=== PATIENT | male | born 1955 | race Caucasian/White ===

== ENCOUNTER 2017-01-14 12:07 | Inpatient (IN) | payer BC, OTHER ==
[~2017-01-14] VITALS: Ht 190.5 cm; Wt 94.8 kg
[~2017-01-14 12:07] MED LIST: AMLO10TA2; ASPI-991 PO; METF500T4; METO50TA3; OLME1TAB2; ROSU5TAB
--- NOTE | 2017-01-14 12:09 | NUR ---
PT BIBRA FROM HOME TO ER BED 15. C/O SEVERE HEADACHE. N/V X 1. PT GOWNED AND PLACED ON MONITOR. 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 GOWNED AND PLACED ON MONITOR. AWAITING MD [place].
--- NOTE | 2017-01-14 12:29 | NUR ---
DR PATRICK AT BEDSIDE FOR EVAL.
[2017-01-14] MEDS ORDERED: KETOROLAC TROMETHAMINE INJ 30 MG/ML VIAL IV ONE (12:30)
[2017-01-14] MEDS ORDERED: IV NS 0.9% 1,000 ML BAG IV ONE ×2 (12:30→17:30)
[2017-01-14] MEDS ORDERED: METOCLOPRAMIDE HCL 10 MG/2 ML VIAL IV ONE (12:30)
[2017-01-14] MEDS ORDERED: ACETAMINOPHEN ES 500 MG TABLET PO ONE (12:30)
[2017-01-14] MEDS ORDERED: KETOROLAC TROMETHAMINE INJ 30 MG/ML VIAL ONE (12:52)
[2017-01-14] MEDS ORDERED: ACETAMINOPHEN ES 500 MG TABLET ONE (12:53)
[2017-01-14] MEDS ORDERED: METOCLOPRAMIDE HCL 10 MG/2 ML VIAL ONE (12:53)
--- NOTE | 2017-01-14 15:12 | NUR ---
PT NOW STATING, HE IS STILL DIZZY AND GOT NAUSEATED THE MONENT HE TRIED TO SIT UP. DR PERRY MADE AWARE.
[2017-01-14] MEDS ORDERED: ONDANSETRON 4 MG TAB.RAPDIS ONE (16:38)
--- NOTE | 2017-01-14 16:39 | NUR ---
ZOFRAN 4MG ODT GIVEN PER ERMD VERBAL ORDER.
[2017-01-14] MEDS ORDERED: ONDANSETRON HCL/PF 4 MG/2 ML VIAL IVP ONE (17:30)
[2017-01-14] MEDS ORDERED: MECLIZINE HCL 12.5 MG TABLET PO ONE (17:30)
[2017-01-14 17:41] LABS: BASOPHILS % (AUTO) 0.3 % (0.0-2.0); EOSINOPHILS % (AUTO) 0.4 % (0.0-6.0); HEMATOCRIT 33 % (39-51); LYMPHOCYTES # (AUTO) 0.4 /CMM (0.8-4.8); LYMPHOCYTES % (AUTO) 10.3 % (20.0-44.0); MEAN CORPUSCULAR HEMOGLOBIN 25 PG (26.0-33.0); MEAN CORPUSCULAR HGB CONC 33 g/dl (31.0-36.0); MEAN CORPUSCULAR VOLUME 76 fL (80-96); MONOCYTES # (AUTO) 0.4 /CMM (0.1-1.30); MONOCYTES % (AUTO) 8.7 % (2.0-12.0); NEUTROPHILS # (AUTO) 3.4 /CMM (1.8-8.9); NEUTROPHILS % (AUTO) 80.3 % (43.0-81.0); PLATELET COUNT (AUTO) 236 /CMM (150-450); RDW COEFFICIENT OF VARIATION 14.2 (11.5-15.0); RED BLOOD CELL COUNT(AUTO) 4.36 MIL/uL (4.5-6.0); WHITE BLOOD COUNT (AUTO) 4.2 K/uL (4.3-11.0)
[2017-01-14 17:50] LABS: CREATININE 1.1 mg/dL (0.6-1.3); POTASSIUM 3.8 mmol/L (3.5-5.1)
--- NOTE | 2017-01-14 17:50 | NUR ---
PATIENT TAKEN TO CT VIA STRETCHER.
[2017-01-14 17:54] LABS: PROTHROMBIN TIME 10.4 SECS (9.5-12.7)
[2017-01-14 17:56] LABS: ALBUMIN 3.6 g/dL (3.4-5.0); BILIRUBIN,DIRECT 0.2 mg/dL (0.0-0.2); BILIRUBIN,TOTAL 0.8 mg/dL (0.2-1.0); TOTAL PROTEIN, SERUM 6.7 g/dL (6.4-8.2)
--- NOTE | 2017-01-14 18:00 | NUR ---
PATIENT RETURNED FROM CT SCAN.
[2017-01-14] MEDS ORDERED: ONDANSETRON HCL/PF 4 MG/2 ML VIAL ONE (18:17)
[2017-01-14] MEDS ORDERED: MECLIZINE HCL 25 MG TABLET ONE (18:17)
--- NOTE | 2017-01-14 19:03 | NUR ---
EPIC PAGED, DR.SIMONA Blanton NEUROSURGERY PHYSICIAN
--- NOTE | 2017-01-14 19:15 | NUR ---
PT REPORT RECIEVED FROM RUDDY RN, PT IN BED ON MONITOR, VSS, PT STATES HE SI STILL FEELING VERY DIZZY BUT A LITTLE BETTER THAN BEFORE, PT STATES HE DOES NOT FEEL LIKE HE CAN STAND AT THIS MOMENT, PT A/OX4 BREATHING EFFORTLESSLY ON ROOM AIR, PT DENIES PAIN AT THIS TIME, MD MADE AWARE WILL CONTINUE TO MONITOR.
--- NOTE | 2017-01-14 19:20 | NUR ---
[facility] REPAGED
--- NOTE | 2017-01-14 19:21 | NUR ---
PT GOING TO TELE 320-2
--- NOTE | 2017-01-14 19:37 | NUR ---
REPORT GIVEN TO HO CONTRERAS IN ER FOR FLOR. REPORT ALSO GIVEN TO JAKE TEAGUE FOR ADMISSION. PATIENT REMAINS IN STABLE CONDITION.
[2017-01-14 20:00] VITALS: BP_SYST 106; BP_SYST 147; BP_DIAS 62; BP_DIAS 71
[2017-01-14] MEDS ORDERED: ONDANSETRON HCL/PF 4 MG/2 ML VIAL IVP PRN (20:00)
[2017-01-14] MEDS ORDERED: MECLIZINE HCL 12.5 MG TABLET PO PRN (20:00)
[2017-01-14] MEDS: IV NS 0.9% 1,000 ML IV PRN (20:24)
[2017-01-14 20:28] LABS: IRON, SERUM 21 ug/dl (50-175); TOTAL IRON BINDING CAPACITY 378 ug/dl (250-450)
--- NOTE | 2017-01-14 20:30 | NUR ---
RN NOTE; ADMITTED A 61Y/O, M. A, OX4. BREATHING EVENLY. NO SOB. NAD. SKIN WARM AND DRY. ABLE TO AMBULATE FROM GURNEY TO THE BED W/ ASSIST DUE TO UNSTABLE GAIT SECONDARY TO DIZZINESS. W/ C/O HEADACHE 07/12. VITAL SIGNS WNL. AFEBRILE. PT ABLE TO PROVIDE FULL MEDICAL HX AND INFO. NEURO ASSESSMENT DONE,. NO FACIAL DROOP, NO SWALLOWING PROBLEM, ABLE TO DRINK WATER W/O CHOKING OR COUGHING, NO FACIAL ASYMMETRY NOTED. NO WEAKNESS. PUPILS EQUAL, REACTIVE TO LIGHT BILAT. PT TEACHING REGARDING S/S OF TIA/ STROKE PROVIDED W/ UNDERSTANDING. ASSISTED PT TO BE COMFORTABLE IN BED . NEEDS ATTENDED .CALL LIGHT GIVEN TO THE PT. BED ALARM ON. SRX2. WILL CONT TO MONITOR AND WILL F/U W/ MD'S ORDERS/
[2017-01-14] MEDS: SIMVASTATIN 20 MG TABLET PO SCH (21:18)
--- NOTE | 2017-01-14 23:40 | NUR ---
rn note; PT WAS SEEN AND EXAMINED BY DR. GARBER . MD WERE REMINDED REGARDING MED RECON. ALSO ASKED MD FOR POSSIBLE ORDER FOR FSBS ACHS AND ALSO FOOT PUMP. OK W/ NEW ORDER. ALSO PER PT HE HAS AN ADVANCE DIRECTIVE STATING THAT PT IS DNR. REQUESTED A COPY . PER PT WILL PROVIDE US W/ A COPY OF ADVANCE DIRECTIVE. MD MADE AWARE. PER DR. GARBER OK TO PLACE AN ORDER FOR DNR IF PT VERBALLY STATES AND WISHES FOR DNR STATUS..
[2017-01-15] VITALS (7 sets, daily range): BP systolic 100–119; BP diastolic 56–65
[2017-01-15] MEDS ORDERED: *INSULIN REGULAR(HUMULIN R)HUM 100 UNIT/ML VIAL SQ PRN
[2017-01-15] MEDS ORDERED: INSULIN REGULAR, HUMAN 100 UNIT/ML 3 ML VIAL SQ PRN ×2
[2017-01-15] MEDS ORDERED: DEXTROSE 50%-WATER 50 ML DISP.SYRIN IV PRN ×2
[2017-01-15] MEDS: BLOOD SUGAR DIAGNOSTIC 1 EACH STRIP IN SCH ×4 (06:37→21:31)
--- NOTE | 2017-01-15 06:39 | NUR ---
rn note; PT IN BED AND ALERT. BREATHING EVENLY. NO SOB. NAD. NO ACUTE EVENT DURING THE NIGHT. NO NEURO DEFICIT NOTED. NO S/S OF TIA/ STROKE . REPORTED RELIEF OF HEADACHE. STILL W/ DIZZINESS. ASSISTED W/ ADLS. NEEDS ATTENDED. BED LOW LOCKED. CALL LIGHT WITHIN REACH. WILL CONT TO MONITOR AND WILL ENDORSE TO AM SHIFT FOR FLOR.
[2017-01-15] MEDS ORDERED: BLOOD SUGAR DIAGNOSTIC 1 EACH STRIP VI SCH (07:30)
--- NOTE | 2017-01-15 07:30 | NUR ---
TELE/ RN OPENING NOTES RECEIVED PT. IN BED A&OX4. TELE READING SINUS RHYTHM BRADYCARDIA WITH INVERTED T WAVES 57 BPM. PT. STATES HE HAS A HISTORY OF INVERTED T WAVES FOR 20 YEARS. BREATHING UNLABORED ON ROOM AIR, PT. OXYGEN SATURATION AT 96%. PT. DENIES DIZZINESS, AND PAIN. NO S/S OF ACUTE DISTRESS. IV FLUIDS RUNNING AT 75 ML/HR. BED IS IN LOWEST POSITION, 2 SIDE RAILS UP, AND INSTRUCTED PT. TO USE CALL LIGHT FOR ASSISTANCE.
[2017-01-15 07:48] LABS: BASOPHILS % (AUTO) 0.4 % (0.0-2.0); EOSINOPHILS # (AUTO) 0.1 /CMM (0.0-0.7); EOSINOPHILS % (AUTO) 1.7 % (0.0-6.0); HEMATOCRIT 30 % (39-51); LYMPHOCYTES # (AUTO) 0.4 /CMM (0.8-4.8); LYMPHOCYTES % (AUTO) 14.6 % (20.0-44.0); MEAN CORPUSCULAR HEMOGLOBIN 26 PG (26.0-33.0); MEAN CORPUSCULAR HGB CONC 34 g/dl (31.0-36.0); MEAN CORPUSCULAR VOLUME 76 fL (80-96); MONOCYTES # (AUTO) 0.6 /CMM (0.1-1.30); MONOCYTES % (AUTO) 20.1 % (2.0-12.0); NEUTROPHILS # (AUTO) 1.9 /CMM (1.8-8.9); NEUTROPHILS % (AUTO) 63.2 % (43.0-81.0); PLATELET COUNT (AUTO) 206 /CMM (150-450); RDW COEFFICIENT OF VARIATION 15.1 (11.5-15.0); RED BLOOD CELL COUNT(AUTO) 3.87 MIL/uL (4.5-6.0)
[2017-01-15 08:05] LABS: INR 0.99 (0.87-1.13); PROTHROMBIN TIME 10.6 SECS (9.5-12.7)
[2017-01-15 08:17] LABS: CHOLESTEROL 120 mg/dL (<200); HDL CHOLESTEROL 43 mg/dL (40-60); LDL 63 mg/dL (0-99); TRIGLYCERIDES 113 mg/dL (30-150)
[2017-01-15 08:19] LABS: ALANINE AMINOTRANSFERASE 22 U/L (12-78); ALBUMIN 3.3 g/dL (3.4-5.0); ALCOHOL, BLOOD < 3 mg/dL (0-0); ALKALINE PHOSPHATASE 82 U/L (46-116); ASPARTATE AMINOTRANSFERASE 16 U/L (15-37); BILIRUBIN,TOTAL 0.7 mg/dL (0.2-1.0); CALCIUM, SERUM 8.7 mg/dL (8.5-10.1); CARBON DIOXIDE 25 mmol/L (21-32); CHLORIDE 110 mmol/L (98-107); CREATININE 1.2 mg/dL (0.6-1.3); GLUCOSE 110 mg/dL (74-106); MAGNESIUM 1.8 mg/dL (1.8-2.4); PHOSPHORUS 3.1 mg/dL (2.5-4.9); POTASSIUM 4.1 mmol/L (3.5-5.1); SODIUM SERUM 144 mmol/L (136-145); TOTAL PROTEIN, SERUM 6.2 g/dL (6.4-8.2); UREA NITROGEN, BLOOD 15 mg/dL (7-18)
[2017-01-15] MEDS ORDERED: ASPIRIN EC 81 MG TABLET.DR PO SCH (09:00)
[2017-01-15] MEDS ORDERED: ASPIRIN 81 MG TAB.CHEW PO SCH (09:00)
[2017-01-15] MEDS: LOSARTAN POTASSIUM 25 MG TABLET PO SCH (09:00)
[2017-01-15] MEDS ORDERED: METOPROLOL TARTRATE 50 MG TABLET PO SCH (09:00)
[2017-01-15] MEDS: AMLODIPINE BESYLATE 10 MG TABLET PO SCH (09:00)
[2017-01-15] MEDS: PANTOPRAZOLE 40 MG TABLET.DR PO SCH (09:01)
--- NOTE | 2017-01-15 09:06 | NUR ---
PT. REFUSED TO TAKE ASPIRIN BECAUSE PER PT. MD SAID NOT TO TAKE ASPIRIN DUE TO RISK FOR BLEEDING. CHECKED PROVIDER NOTES. DID NOT ADMINISTER ASPIRIN.
[2017-01-15] MEDS: IV NS 0.9% 1,000 ML IV PRN ×2 (09:07→21:33)
--- NOTE | 2017-01-15 09:15 | NUR ---
PT.'S BLOOD SUGAR WAS 182 MG/DL. GLUCOPHAGE MEDICATION WAS GIVEN.
[2017-01-15] MEDS: METFORMIN 500 MG TABLET PO SCH ×2 (09:19→17:37)
--- NOTE | 2017-01-15 10:00 | NUR ---
TELE/RN NOTES PT. WAS SEEN AND EXAMINED BY SPEECH THERAPIST FOR SWALLOW EVALUATION.
[2017-01-15 10:36] LABS: BAND % (MANUAL) 1 % (0.0-5.0); EOSINOPHILS % (MANUAL) 3 % (0-4); LYMPHOCYTES % (MANUAL) 14 % (16-48); MONOCYTES % (MANUAL) 9 % (0-11.0); NEUTROPHILS % (MANUAL) 73 (42-76)
--- NOTE | 2017-01-15 11:07 | NUR ---
PER MD DISCONTINUE ASPIRIN DUE TO RISK FOR BLEEDING, PT. HAS HISTORY OF GI BLEED.
[2017-01-15 14:42] LABS: APPEARANCE,URINE CLEAR (CLEAR); BILIRUBIN,URINE NEGATIVE (NEGATIVE); BLOOD, URINE NEGATIVE Ery/uL (NEGATIVE); COLOR,URINE YELLOW (YELLOW); KETONES,URINE TRACE (NEGATIVE); LEUKOCYTE ESTERASE ,URINE NEGATIVE (NEGATIVE); NITRITE, URINE NEGATIVE (NEGATIVE); PH,URINE 6.5 (5.0-8.0); PROTEIN,URINE NEGATIVE (NEGATIVE); UGLUCOSE NEGATIVE (NEGATIVE); UROBILINOGEN,URINE 0.2 EU/dL (0.2)
[2017-01-15 14:49] LABS: BACTERIA,URINE None seen /HPF (None Seen); RBC,URINE 0-2 /HPF (0-2); SQUAMOUS EPITHELIAL CELL,UR Rare /HPF (None Seen); WBC,URINE 0-2 /HPF (0-3)
--- NOTE | 2017-01-15 17:00 | NUR ---
RN NOTES PT. STATES HE HAD A GI BLEED 12/17/2016 THAT HE WAS HOSPITALIZED FOR.
[2017-01-15 17:28] LABS: PROSTATE SPECIFIC ANTIGEN SCR 0.38 ng/mL (0.00-4.00); THYROID STIMULATING HORMONE 2.111 uIU/mL (0.358-3.74); URIC ACID 5.9 mg/dL (2.6-7.2)
[2017-01-15] MEDS ORDERED: NAPROXEN 500 MG TABLET PO PRN (18:30)
--- NOTE | 2017-01-15 19:42 | NUR ---
RN CLOSING NOTES PT. IN BED A&OX4.BREATHING UNLABORED ON ROOM AIR, PT. OXYGEN SATURATION AT 97%. NO S/S OF ACUTE DISTRESS. IV FLUIDS RUNNING AT 75 ML/HR. DVT PUMPS ARE WORKING ON BOTH LEGS. BED IS IN LOWEST POSITION, 2 SIDE RAILS UP, AND INSTRUCTED PT. TO USE CALL LIGHT FOR ASSISTANCE.
[2017-01-15] MEDS: ACETAMINOPHEN 325 MG TABLET PO PRN (21:24)
[2017-01-15] MEDS: SIMVASTATIN 20 MG TABLET PO SCH (21:24)
--- NOTE | 2017-01-15 21:32 | NUR ---
ms/rn notes patient medicated with tylenol tablets for headache, accucheck done- Bs- 87 mg/dl. no coverage given. will cont. to monitor.
[2017-01-15] MEDS ORDERED: SIMVASTATIN 20 MG TABLET PO SCH (22:00)
--- NOTE | 2017-01-16 05:57 | NUR ---
ms/rn notes patient on bed, no significant changes noted.Vital signs stable, afebrle. Denies pain or discomfort at present. administered all meds as ordered. Accucheck done - bs- 89 mg/dl. no insulin coverage. no acute distress noted. all needs attended. will continue to plan of care.
--- NOTE | 2017-01-16 07:29 | NUR ---
RN OPEN NOTES RECEIVED REPORT FROM INDUSTRIAL RELATIONS MANAGER NURSE. WILL CONTINUE TO MONITOR AND ASSESS PATIENT.
[2017-01-16] MEDS: BLOOD SUGAR DIAGNOSTIC 1 EACH STRIP IN SCH ×4 (07:34→21:37)
[2017-01-16 08:00] VITALS: BP 133/71
[2017-01-16 08:06] LABS: BASOPHILS % (AUTO) 0.5 % (0.0-2.0); EOSINOPHILS # (AUTO) 0.1 /CMM (0.0-0.7); EOSINOPHILS % (AUTO) 3.4 % (0.0-6.0); HEMATOCRIT 31 % (39-51); LYMPHOCYTES # (AUTO) 0.6 /CMM (0.8-4.8); LYMPHOCYTES % (AUTO) 22.1 % (20.0-44.0); MEAN CORPUSCULAR HEMOGLOBIN 25 PG (26.0-33.0); MEAN CORPUSCULAR HGB CONC 33 g/dl (31.0-36.0); MEAN CORPUSCULAR VOLUME 77 fL (80-96); MONOCYTES # (AUTO) 0.6 /CMM (0.1-1.30); MONOCYTES % (AUTO) 21.4 % (2.0-12.0); NEUTROPHILS # (AUTO) 1.4 /CMM (1.8-8.9); NEUTROPHILS % (AUTO) 52.6 % (43.0-81.0); PLATELET COUNT (AUTO) 200 /CMM (150-450); RDW COEFFICIENT OF VARIATION 15.4 (11.5-15.0); RED BLOOD CELL COUNT(AUTO) 3.95 MIL/uL (4.5-6.0); WHITE BLOOD COUNT (AUTO) 2.6 K/uL (4.3-11.0)
[2017-01-16 08:07] LABS: CALCIUM, SERUM 8.3 mg/dL (8.5-10.1); POTASSIUM 3.6 mmol/L (3.5-5.1)
[2017-01-16] MEDS: LOSARTAN POTASSIUM 25 MG TABLET PO SCH (08:16)
[2017-01-16] MEDS: AMLODIPINE BESYLATE 10 MG TABLET PO SCH (08:16)
[2017-01-16] MEDS: METFORMIN 500 MG TABLET PO SCH ×2 (08:16→15:16)
[2017-01-16] MEDS: PANTOPRAZOLE 40 MG TABLET.DR PO SCH (08:16)
[2017-01-16 09:18] LABS: EOSINOPHILS % (MANUAL) 4 % (0-4); LYMPHOCYTES % (MANUAL) 24 % (16-48); MONOCYTES % (MANUAL) 16 % (0-11.0); NEUTROPHILS % (MANUAL) 56 (42-76)
--- NOTE | 2017-01-16 09:45 | NUR ---
DR POLLOCK AT BEDSIDE.
[2017-01-16 11:16] LABS: CARCINOEMBRYONIC AG (CEA) 0.9 ng/mL (0.0-4.7)
[2017-01-16] MEDS ORDERED: MECL-102 PO (11:20)
--- NOTE | 2017-01-16 11:30 | NUR ---
PATIENT IS OFF THE FLOOR FOR MRI
[2017-01-16] MEDS ORDERED: ASPIRIN EC 325 MG TABLET.DR PO ONE (12:00)
--- NOTE | 2017-01-16 15:16 | NUR ---
METFORMIN 1700 DOSE HELD DUE TO MRI CONTRAST. HOLD METFORMIN FOR 48 HOURS. TO BE RESUMED ON 01/18 1700
[2017-01-16] MEDS ORDERED: GADOVERSETAMIDE 5 MMOL/10 ML VIAL IJ ONE (15:41)
[2017-01-16 16:00] VITALS: BP 129/69
[2017-01-16] MEDS: ACETAMINOPHEN 325 MG TABLET PO PRN (17:02)
--- NOTE | 2017-01-16 18:43 | NUR ---
RN CLOSING NOTES PATIENT IS IN BED, ALERT AND ORIENTED TO NAME, PLACE AND TIME. NO SIGNS AND SYMPTOMS OF DISTRESS OR PAIN. PATIENT IS ABLE TO VERBALIZED PAIN LEVEL AT APPROPRIATE TIME. BED IN LOW POSITION, LOCKED AND TWO SIDE RAILS ARE UP. IV SITE IS INTACT AND PATENT HL. POSSIBLE DISCHARGE IN AM IF DR POLLOCK CLEAR THE PATIENT. PATIENT IS ABLE TO AMBULATE TO BATHROOM WITH ASSISTANCE. GAIT IS A LITTLE UNSTEADY. WILL ENDORSE TO ACUTE CARE NURSE NURSE.
--- NOTE | 2017-01-16 19:20 | NUR ---
RN OPEN NOTES RECEIVED PATIENT AWAKE IN BED WITH FAMILY AT BEDSIDE. A/O X4. NO SIGNS OF DISTRESS OR DISCOMFORT. BREATHING EVEN AND UNLABORED. IV ACCESS IN L HAND PATENT AND INTACT, NO SIGNS OF REDNESS OR INFILTRATION. BED IN LOW LOCKED POSITION WITH SIDE RAILS X2. CALL LIGHT WITHIN REACH. WILL CONTINUE TO MONITOR.
[2017-01-16 20:00] VITALS: BP 137/72
[2017-01-16 20:09] VITALS: BP 137/72
[2017-01-16] MEDS: SIMVASTATIN 20 MG TABLET PO SCH (21:36)
[2017-01-17 03:05] LABS: HAPTOGLOBIN 134 mg/dL (34-200)
[2017-01-17] MEDS: PANTOPRAZOLE 40 MG TABLET.DR PO SCH (06:35)
[2017-01-17] MEDS: BLOOD SUGAR DIAGNOSTIC 1 EACH STRIP IN SCH ×2 (06:38→11:33)
--- NOTE | 2017-01-17 06:42 | NUR ---
RN CLOSING NOTES PATIENT AWAKE IN BED. A/O X4. NO SIGNS OF DISTRESS OR DISCOMFORT. BREATHING EVEN AND UNLABORED. IV ACCESS IN L HAND PATENT AND INTACT, NO SIGNS OF REDNESS OR INFILTRATION. ALL NEEDS MET. NO SIGNIFICANT CHANGES THROUGH THE NIGHT. BED IN LOW LOCKED POSITION WITH SIDE RAILS X2. CALL LIGHT WITHIN REACH. WILL ENDORSE TO AM SHIFT FOR FLOR.
[2017-01-17 07:09] LABS: *SPE A/G RATIO 1.6 (0.7-1.7); *SPE ALBUMIN 3.6 g/dL (2.9-4.4); *SPE ALPHA-1-GLOBULIN 0.2 g/dL (0.0-0.4); *SPE ALPHA-2-GLOBULIN 0.6 g/dL (0.4-1.0); *SPE BETA GLOBULIN 0.8 g/dL (0.7-1.3); *SPE GLOBULIN, TOTAL 2.3 g/dL (2.2-3.9); *SPE M-SPIKE Not Observed g/dL (Not Observed); *SPE PROTEIN TOTAL 5.9 g/dL (6.0-8.5); *SPEGAMMA GLOBULIN 0.6 g/dL (0.4-1.8)
--- NOTE | 2017-01-17 07:15 | NUR ---
RN OPEN NOTES RECEIVED REPORT FROM GENERAL PARTNER NURSE. PATIENT IS IN BED, AWAKE, ALERT AND ORIENTED TO NAME, PLACE AND TIME. NO SIGNS AND SYMPTOMS OF DISTRESS. i ASKED PATIENT TO SHOW ME IF HE CAN WALK STEADY; GAIT IS IMPROVING; PATIENT WAS ABLE TO WALK TO THE BATHROOM AND BACK, LITTLE DIZZINESS NOTED ON TURNING. WILL COMMUNICATE WITH DR POLLOCK WHEN SHE IS DOING HER ROUNDS. WILL CONTINUE TO MONITOR AND ASSESS PATIENT THROUGHOUT MY SHIFT
[2017-01-17] MEDS: METFORMIN 500 MG TABLET PO SCH (07:41)
--- NOTE | 2017-01-17 07:41 | NUR ---
METFORMIN HELD DUE TO CONTRAST ON 01/16
[2017-01-17 08:00] VITALS: BP 127/72
[2017-01-17 08:12] VITALS: BP 127/72
[2017-01-17] MEDS: LOSARTAN POTASSIUM 25 MG TABLET PO SCH (08:12)
[2017-01-17] MEDS: AMLODIPINE BESYLATE 10 MG TABLET PO SCH (08:12)
--- NOTE | 2017-01-17 08:13 | NUR ---
HELD LOSARTAN 25MG DUE TO PATIENT DOZINESS AND LOW HEART RATE. WILL CONTINUE TO MONITOR PATIENT BLOOD PRESSURE
--- NOTE | 2017-01-17 08:54 | NUR ---
PT AT BEDSIDE
--- NOTE | 2017-01-17 11:20 | NUR ---
DR CONTRERAS AT BEDSIDE
[2017-01-17] MEDS: ACETAMINOPHEN 325 MG TABLET PO PRN (12:52)
--- NOTE | 2017-01-17 13:37 | NUR ---
STATISTICIAN THEORETICAL NOTES PATIENT DISCHARGE ORDER RECEIVED AND CARRIED OUT. NO SIGNS AND SYMPTOMS OF DISTRESS OR PAIN AT TIME OF DISCHARGE. DENIED HEADACHE. PATIENT WAS AMBULATING WITHOUT DIFFICULTIES. DISCHARGE INSTRUCTIONS EXPLAINED TO PATIENT. PATIENT VERBALIZED UNDERSTANDING. NO NEW CONCERNS IDENTIFIED. ALL DISCHARGE FORMS SIGNED BY PATIENT AND PLACED IN THE CHART. PICTURES WERE TAKEN AND PLACED IN THE CHART. DISCHARGE PACKAGE WITH PATIENT AT TIME OF DISCHARGE. PATIENT ADVISED TO FOLLOW UP WITH HIS PRIMARY CARE PHYSICIAN AND HIS CERTIFIER WITHIN A WEEK POST DISCHARGE. PATIENT HAS AN APPOINTMENT WITH HIS CERTIFIER FOR NEXT WEEK. ALL PERSONAL BELONGING WITH PATIENT AT TIME OF DISCHARGE. BELONGING FORMS SIGNED BY PATIENT AND PLACED IN THE CHART. PRESCRIPTION WITH PATIENT AT TIME OF DISCHARGE. IV SITE REMOVED. ID BAND REMOVED. PATIENT WAS ESCORTED TO [facility] VIA A WHEELCHAIR AND AN RN. PATIENT'S NEIGHBOR, PADMINI WALSH, PICKED UP PATIENT FROM [facility] [place] VIA A PRIVATE CAR.
== END 2017-01-17 13:37 | disposition home or self-care (01) | DRG 103 ==
LOC: ER 12:08 → TELE 19:23 → MED 01-15 08:42
PROVIDERS: ADMIT Internal Medicine; ATTEND Internal Medicine
DX: G43.109 Migraine with aura, not intractable, without status migrainosus (principal); I10 Essential (primary) hypertension; E11.9 Type 2 diabetes mellitus without complications; D50.9 Iron deficiency anemia, unspecified; E78.5 Hyperlipidemia, unspecified; H81.49 Vertigo of central origin, unspecified ear; E66.9 Obesity, unspecified; G47.33 Obstructive sleep apnea (adult) (pediatric); D63.8 Anemia in other chronic diseases classified elsewhere; H55.00 Unspecified nystagmus; Z79.82 Long term (current) use of aspirin; Z79.899 Other long term (current) drug therapy; Z82.49 Family history of ischemic heart disease and other diseases of the circulatory system; Z68.26 Body mass index [BMI] 26.0-26.9, adult
CPT/HCPCS: 36415; 70450-TC; 70553-TC; 80048-TC; 80053-TC; 80061-TC; 80076-TC; 80305; 81000-TC; 82306; 82378; 82728-TC; 82746; 82962-TC; 83010; 83540-TC; 83615-TC; 83735-TC; 84100-TC; 84153-TC; 84155; 84165; 84443-TC; 84550-TC; 85025-TC; 85652-TC; 85730-TC; 86592; 87081-TC; 87086-TC; 92611-TC; 95819-TC; A4606; A9579; G0480; J1815; J1885; J2405; J2765; J7030; J8597; Q0162; Z7610

== ENCOUNTER 2023-06-03 06:19 | Emergency (ER) | payer MEDICARE ==
[~2023-06-03] VITALS: Ht 177.8 cm; Wt 77.1 kg
[~2023-06-03 06:19] MED LIST changes: +AMLO-213; -AMLO10TA2; +ASPI-1420 PO; -ASPI-991 PO; +MECL-159 PO; +METF-440; -METF500T4; +METO50TA16; -METO50TA3; +OLME1TAB19; -OLME1TAB2
[2023-06-03 07:57] LABS: BASOPHILS # (AUTO) 0.1 K/uL (0.0-0.2); BASOPHILS % (AUTO) 0.7 % (0.0-2.0); EOSINOPHILS # (AUTO) 0.1 K/uL (0.0-0.7); EOSINOPHILS % (AUTO) 0.8 % (0.0-6.0); HEMATOCRIT 40 % (39-51); HEMOGLOBIN 13.7 g/dL (13.5-17.5); LYMPHOCYTES # (AUTO) 0.6 K/uL (0.8-4.8); LYMPHOCYTES % (AUTO) 5.6 % (20.0-44.0); MEAN CORPUSCULAR HEMOGLOBIN 28 PG (26.0-33.0); MEAN CORPUSCULAR HGB CONC 35 g/dl (31.0-36.0); MEAN CORPUSCULAR VOLUME 80 fL (80-96); MONOCYTES # (AUTO) 1.1 K/uL (0.1-1.30); MONOCYTES % (AUTO) 11.1 % (2.0-12.0); NEUTROPHILS # (AUTO) 8.4 K/uL (1.8-8.9); NEUTROPHILS % (AUTO) 81.8 % (43.0-81.0); PLATELET COUNT (AUTO) 147 K/uL (150-450); RED BLOOD CELL COUNT(AUTO) 4.97 MIL/uL (4.5-6.0); RED CELL DISTRIBUTION WIDTH 15.6 % (11.5-15.0); WHITE BLOOD COUNT (AUTO) 10.3 K/uL (4.3-11.0)
[2023-06-03 08:47] LABS: LACTIC ACID 1.6 mmol/L (0.4-2.0)
[2023-06-03 09:23] LABS: ALANINE AMINOTRANSFERASE 24 U/L (12-78); ALKALINE PHOSPHATASE 111 U/L (46-116); ASPARTATE AMINOTRANSFERASE 12 U/L (15-37); BILIRUBIN,DIRECT 0.4 mg/dL (0.0-0.2); BILIRUBIN,TOTAL 1.7 mg/dL (0.2-1.0); CALCIUM, SERUM 9.4 mg/dL (8.5-10.1); CHLORIDE 102 mmol/L (98-107); CREATININE 1.2 mg/dL (0.6-1.3); GLUCOSE 169 mg/dL (74-106); POTASSIUM 3.6 mmol/L (3.5-5.1); SODIUM SERUM 135 mmol/L (136-145); TOTAL PROTEIN, SERUM 7.7 g/dL (6.4-8.2); UREA NITROGEN, BLOOD 21 mg/dL (7-18)
[2023-06-03 09:30] LABS: CARBON DIOXIDE 21 mmol/L (21-32)
[2023-06-03] MEDS ORDERED: ONDANSETRON HCL/PF - ER 4 MG/2 ML VIAL IV ONE (10:30)
[2023-06-03] MEDS ORDERED: IV NS 0.9% 1,000 ML BAG IV ONE (10:30)
[2023-06-03] MEDS ORDERED: ONDANSETRON HCL/PF 4 MG/2 ML VIAL ONE (10:49)
[2023-06-03 11:56] VITALS: BP 128/66; TEMP 97.7; O2SAT 94
== END 2023-06-03 11:59 | disposition home or self-care (01) ==
LOC: ER 06:20
DX: J06.9 Acute upper respiratory infection, unspecified (principal); R11.10 Vomiting, unspecified; R94.31 Abnormal electrocardiogram [ECG] [EKG]; G43.909 Migraine, unspecified, not intractable, without status migrainosus; I10 Essential (primary) hypertension; E11.9 Type 2 diabetes mellitus without complications; Z79.84 Long term (current) use of oral hypoglycemic drugs; Z79.899 Other long term (current) drug therapy
CPT/HCPCS: 99285; 96374; 71045; 96361; 93005; 87804 ×2; 84145; 85025; 80048; 87040 ×2; 83605; 83690; 80076; 36415; 84484 ×2; J2405 ×2; J7030